=== PATIENT | female | born 1950 | race Caucasian/White ===

== ENCOUNTER 2016-10-17 06:28 | Day surgery (SDC) | payer OTHER, MEDICARE ==
--- NOTE | 2016-10-09 08:17 | HP ---
DATE OF ADMISSION: DATE OF DICTATION: 09/27/2016 DATE OF SURGERY: 10/17/2016 REASON FOR ADMISSION: Right inguinal hernia. BRIEF HISTORY: This is a 66-year-old female with a known right inguinal hernia for greater than 5 years. Patient states she does a lot of heavy lifting, gardening, and landscaping. Over the past 5 years or so, the hernia has gotten larger and now it is to a point where it is causing her discomfort. She has pain in the right groin with any type of Valsalva maneuvers or an occasional bending as well. She has had no bouts of nausea, no vomiting, no change in bowel habits. PAST MEDICAL HISTORY: No coronary disease. Patient has a history of hypertension, hypercholesterolemia, blood disorder, and kidney issues. PAST SURGICAL HISTORY: Knee replacement. ALLERGIES: None. MEDICATIONS: Lisinopril, Centrum. SOCIAL HISTORY: Patient does not smoke. She drinks socially. PHYSICAL EXAMINATION: Lungs: Clear. Heart: Regular rhythm. Abdomen: Soft, nontender, nondistended. She has a large right inguinal hernia which is reducible in the supine position. On the left there is no obvious hernia. Difficult exam due to the patient's body habitus. IMPRESSION/PLAN: Right inguinal hernia: This is a 66-year-old, very active female, who does landscaping as a part-time job. She has a right inguinal hernia that is becoming very symptomatic and she has pain in the area. Patient wished to have her acute and chronic hernia repaired due to the pain. Given the fact that she does a fair amount of physical activity, I think she should be repaired with mesh. We have discussed the open approach versus a laparoscopic approach. Patient has opted to proceed with a laparoscopic right inguinal hernia repair at this time. At the time of laparoscopy, the left side will be examined, and if an occult hernia is noted, it will be repaired. If no hernia is seen, a piece of mesh will be left in direct inguinal space for reinforcement. The indications, alternatives, and complications of the procedure discussed, questions answered. Will plan to obtain written consent the day of surgery. SAVI HEAD M.D. [id number] cc: Gigi Todd MD
[2016-10-15 17:25] VITALS: BMI 25.8
[2016-10-17] MEDS ORDERED: ceFAZolin SODIUM 1 GM VIAL ONE ×2 (06:57→07:16)
[2016-10-17] MEDS ORDERED: PHENYLEPHRINE HCL 10 MG/1 ML SINGLE DOSE VIAL ONE (07:16)
[2016-10-17] MEDS ORDERED: DEXAMETHASONE SOD PHOSPHATE 4 MG/1 ML VIAL ONE ×2 (07:16→08:32)
[2016-10-17] MEDS ORDERED: ePHEDrine SULFATE 50 MG/1 ML AMPULE ONE (07:16)
[2016-10-17] MEDS ORDERED: GLYCOPYRROLATE 0.2 MG/1 ML VIAL ONE (07:16)
[2016-10-17] MEDS ORDERED: NEOSTIGMINE METHYLSULFATE 0.5 MG/ML - 10 ML MDV ONE ×2 (07:17→08:54)
[2016-10-17] MEDS ORDERED: ROCURONIUM BROMIDE 50 MG/5 ML VIAL ONE ×2 (07:17)
[2016-10-17] MEDS ORDERED: SUCCINYLCHOLINE CHLORIDE 200 MG/10 ML VIAL ONE (07:17)
[2016-10-17] MEDS ORDERED: SODIUM CHLORIDE 0.9% P/F 10 ML VIAL IJ ONE (07:20)
[2016-10-17] MEDS ORDERED: MIDAZOLAM HCL 2 MG/2 ML SINGLE DOSE VIAL ONE (07:24)
[2016-10-17] MEDS ORDERED: LIDOCAINE HCL 2% (20ML MULTI-DOSE VIAL) NR ONE (07:26)
[2016-10-17] MEDS ORDERED: ceFAZolin SODIUM 1 GM VIAL IVPB ONE (08:20)
[2016-10-17] MEDS ORDERED: PROMETHAZINE HCL 25 MG/1 ML VIAL IVPUSH PRN (09:29)
[2016-10-17] MEDS ORDERED: ONDANSETRON 4 MG/2 ML VIAL IVPUSH PRN (09:29)
[2016-10-17] MEDS ORDERED: oxyCODONE HCL 5 MG TABLET PO PRN (09:29)
[2016-10-17] MEDS ORDERED: oxyCODONE HCL 5 MG TABLET ONE (11:01)
[2016-10-17 11:57] VITALS: BP 130/87; PULSE 62; TEMP 97.5
--- NOTE | 2016-10-17 19:02 | OP ---
DATE OF OPERATION: 10/17/2016 PREOPERATIVE DIAGNOSIS: Acute and chronic right inguinal hernia. POSTOPERATIVE DIAGNOSIS: Acute and chronic right inguinal hernia, indirect; left indirect inguinal hernia. PROCEDURE: Bilateral laparoscopic inguinal herniorrhaphy with mesh. SURGEON: Soren Crain MD VAT HOUSE SUPERVISOR: Roosevelt Samaniego MD ANESTHESIA: Mingo Whitlock MD (general). ESTIMATED BLOOD LOSS: Minimal. SPECIMEN: None. PROCEDURE: This is a 66-year-old female with a known right inguinal hernia. It has become very symptomatic for her and now she wished to have this repaired. Patient identified and appropriately positioned on operating room table. After placement of general anesthesia, the abdomen prepped and draped in the usual sterile with ChloraPrep. An infraumbilical incision was made and deepened to subcutaneous tissue. The fascia of the rectus muscle on the right identified, divided sharply, and the muscles split. Under direct vision, a dissector balloon followed by a structural balloon placed. Also under direct vision, a suprapubic 11-mm port placed. The following structures on the right side identified: Pubic tubercle, Jesse's ligament, inferior epigastric vessels, pubis, and lateral abdominal wall. During this dissection, she had no direct component. She had a large indirect inguinal hernia sac and there was a moderate cord lipoma stuck through the internal ring. The lipoma reduced, the sac reduced, the round ligament subsequently clipped and then divided. A 6 x 6 piece of Versatex mesh was placed into the preperitoneal space and then anchored laterally to anterior abdominal and lateral abdominal wall. Medially it was anchored to the anterior abdominal wall, pubic tubercle, and Jesse's ligament. Upon completion of the right side, similar structures on the left side identified. On the left side, she had an indirect inguinal hernia as well containing a fat lipoma. Both reduced back into the preperitoneal space. Again, the round ligament was subsequently isolated, clipped, and then divided. Another 6 x 6 piece of Versatex mesh was used for the operative repair. It was placed into the preperitoneal space and then anchored laterally to the anterior abdominal wall and lateral abdominal wall. Medially, mesh anchored in the midline, anchored to anterior abdominal wall, pubic tubercle, and Jesse's ligament. The preperitoneal space desufflated under direct vision, the operative field examined, noted to be hemostatic. The fascia at the superior port site and inferior port site were reapproximated with interrupted 0 Vicryl suture, all skin closed with 4-0 subcuticular Biosyn followed by Dermabond. At the conclusion of case, sponge counts were correct. ATTESTATION: Brief operative note handwritten on the preprinted form. [facility] will be queried prior to giving any narcotics. It will be done electronically as well. Anderson GILLESPIE [id number] cc: Gigi Todd MD MTDD
== END 2016-10-17 12:10 | disposition home or self-care (01) ==
LOC: JASU-SURG 06:28
PROVIDERS: ATTEND Surgery
PROC: 0YUA4JZ Supplement Bilateral Inguinal Region with Synthetic Substitute, Percutaneous Endoscopic Approach (ICD-10-PCS; principal; 2016-10-17 08:00)
DX: K40.20 Bilateral inguinal hernia, without obstruction or gangrene, not specified as recurrent (principal)
CPT/HCPCS: 94760

== ENCOUNTER 2017-04-13 20:49 | Emergency (ER) | payer OTHER, MEDICARE ==
[2017-04-13 21:05] VITALS: BP 153/101; PULSE 75; TEMP 97.7; BMI 25.4
--- NOTE | 2017-04-13 21:13 | PDOC ---
History of Present Illness - General Chief Complaint: Pain Stated Complaint: CHEST PAIN Time Seen by Provider: 04/13/17 21:05 History Source: Patient - History of Present Illness Initial Comments: 04/14/17 02:03 66-year-old female with a history of right sided substernal chest pain presents to the emergency department complaining of 6/10 intermittent right sided dull chest pain 1 hour after smoking marijuana. Patient denies headaches, dizziness , lightheadedness, nausea/vomiting, fever/chills, neck pains, jaw pains, shortness of breath, abdominal pains, flank pains, extremity numbness or tingling sensation. Patient states she has a history of similar chest pains and was seen by her PMD and technician biological health and was told it is benign. Patient had an echocardiogram and stress test approximately 8 months ago which is also benign. Presenting Symptoms: Chest Pain (right side chest) Timing/Duration: reports: intermittent Severity/Quality: reports: dull Location: reports: other (right sided) Chest Pain Radiation: reports: no radiation Activities at Onset: reports: none Past History - Past Medical History Allergies/Adverse Reactions: Allergies Allergy/AdvReac Type Severity Reaction Status Date / Time No Known Drug Allergies Allergy Verified 04/13/17 21:02 Home Medications: Ambulatory Orders Lisinopril [Zestril] 2.5 mg PO DAILY 05/14/16 Aspirin Coated [Ecotrin -] 81 mg PO DAILY 10/15/16 Mirabegron [Myrbetriq] 25 mg PO DAILY 10/15/16 Anemia: No Asthma: No Cancer: No Cardiac Disorders: No CVA: No COPD: No CHF: No Dementia: No Diabetes: No GI Disorders: No Disorders: Yes (BENIGN CYST ON KIDNEY) HTN: Yes Hypercholesterolemia: Yes Liver Disease: No Seizures: No Thyroid Disease: No - Surgical History Abdominal Surgery: No Appendectomy: No Cardiac Surgery: No Cholecystectomy: No Lung Surgery: No Neurologic Surgery: No Orthopedic Surgery: Yes (SHARLENE KNEE REPLACEMENT) - Psycho/Social/Smoking Cessation Hx Suicidal Ideation: No Smoking History: Never smoked Have you smoked in the past 12 months: No Number of Cigarettes Smoked Daily: 0 Information on smoking cessation initiated: No Hx Alcohol Use: No Drug/Substance Use Hx: No Substance Use Type: Alcohol, Marijuana Hx Substance Use Treatment: No Cardiac Specific PMH - Complaint Specific PMHX Pacemaker: No Review of Systems - Review of Systems Able to Perform ROS?: Yes Comments:: 04/14/17 01:53 CONSTITUTIONAL: Absent: fever, chills, diaphoresis, generalized weakness, malaise, loss of appetite HEENT: Absent: rhinorrhea, nasal congestion, throat pain, throat swelling, difficulty swallowing, mouth swelling, ear pain, eye pain, visual Changes CARDIOVASCULAR: +right sided CP Absent: loss of consciousness, palpitations, irregular heart rate, peripheral edema RESPIRATORY: Absent: cough, shortness of breath, dyspnea with exertion, orthopnea, wheezing, stridor, hemoptysis GASTROINTESTINAL: Absent: abdominal pain, abdominal distension, nausea, vomiting, diarrhea, constipation, melena, hematochezia GENITOURINARY: Absent: dysuria, frequency, urgency, hesitancy, hematuria, flank pain, genital pain MUSCULOSKELETAL: Absent: myalgia, arthralgia, joint swelling SKIN: Absent: rash, itching, pallor HEMATOLOGIC/IMMUNOLOGIC: Absent: easy bleeding, easy bruising, lymphadenopathy, frequent infections ENDOCRINE: Absent: unexplained weight gain, unexplained weight loss, heat intolerance, cold intolerance NEUROLOGIC: Absent: headache, focal weakness or paresthesias, dizziness, unsteady gait, seizure, mental status changes, bladder or bowel incontinence PSYCHIATRIC: Absent: anxiety, depression, suicidal or homicidal ideation, hallucinations. Is the patient limited Irish proficient: No *Physical Exam - Vital Signs Last Vital Signs Temp Pulse Resp BP Pulse Ox 97.7 F 75 18 153/101 98 04/13/17 21:02 04/13/17 21:02 04/13/17 21:02 04/13/17 21:02 04/13/17 21:02 - Physical Exam Comments: 04/14/17 01:49 GENERAL: Well developed, well nourished. Awake and alert. No acute distress. HEENT: Normocephalic, atraumatic. PERRLA, EOMI. No conjunctival pallor. Sclera are non- icteric. Moist mucous membranes. Oropharynx is clear. NECK: Supple. Full ROM. No JVD. Carotid pulses 2+ and symmetric, without bruits. No thyromegaly. No lymphadenopathy. CARDIOVASCULAR: Regular rate and rhythm. No murmurs, rubs, or gallops. Distal pulses are 2+ and symmetric. PULMONARY: No evidence of respiratory distress. Lungs clear to auscultation bilaterally. No wheezing, rales or rhonchi. ABDOMINAL: Soft. Non-tender. Non-distended. No rebound or guarding. No organomegaly. Normoactive bowel sounds. MUSCULOSKELETAL Normal range of motion at all joints. No bony deformities or tenderness. No CVA tenderness. EXTREMITIES: No cyanosis. No clubbing. No edema. No calf tenderness. SKIN: Warm and dry. Normal capillary refill. No rashes. No jaundice. NEUROLOGICAL: Alert, awake, appropriate. Cranial nerves 2-12 intact. No deficits to light touch and temperature in face, upper extremities and lower extremities. No motor deficits in the in face, upper extremities and lower extremities. Normoreflexic in the upper and lower extremities. Normal speech. Toes are down- going bilaterally. Gait is normal without ataxia. PSYCHIATRIC: Cooperative. Good eye contact. Appropriate mood and affect. ED Treatment Course - LABORATORY CBC & Chemistry Diagram: 04/13/17 21:11 04/13/17 21:11 - ADDITIONAL ORDERS Additional order review: Laboratory Results 04/14/17 04/14/17 04/13/17 02:55 01:43 21:11 Sodium 139 Potassium 4.2 Chloride 106 Carbon Dioxide 26 Anion Gap 7 L BUN 27 H D Creatinine 0.9 D Creat Clearance w eGFR > 60 Random Glucose 124 H D Calcium 9.1 Total Bilirubin 0.3 D AST 24 D ALT 29 D Alkaline Phosphatase 68 D Creatine Kinase 113 Troponin I < 0.02 < 0.02 Total Protein 7.3 Albumin 3.9 Opiates Screen Negative Methadone Screen Negative Barbiturate Screen Negative Phencyclidine Screen Negative Ur Amphetamines Screen Negative MDMA (Ecstasy) Screen Negative Benzodiazepines Screen Negative Cocaine Screen Negative U Marijuana (THC) Screen Negative 04/13/17 21:11 RBC 4.17 MCV 93.1 MCHC 32.9 RDW 13.5 MPV 7.7 D Neutrophils % 55.8 D Lymphocytes % 32.5 D Monocytes % 7.6 Eosinophils % 3.4 Basophils % 0.7 - RADIOLOGY Radiology Studies Ordered: Category Date Time Status CHEST PA & LAT [RAD] Stat Radiology 04/14/17 02:33 Taken Radiograph Interpretation: 04/14/17 03:06 CXR 2v NAD - Medications Given in the ED: ED Medications Discontinued Medications Generic Name Dose Route Start Last Admin Trade Name Freq PRN Reason Stop Dose Admin Sodium Chloride 1,000 mls @ 1,000 mls/hr 04/13/17 22:13 04/13/17 22:31 Normal Saline - IV 04/13/17 23:12 1,000 mls/hr ASDIR STA Administration *DC/Admit/Observation/Transfer Diagnosis at time of Disposition: Chest pain Qualifiers: Chest pain type: other chest pain Qualified Code(s): R07.89 - Other chest pain - Discharge Dispostion Disposition: HOME Condition at time of disposition: Stable Admit: No - Referrals Referrals: Gigi Todd MD [Primary Care Provider] - Omar Gomez MD [Staff Physician] - - Patient Instructions Printed Discharge Instructions: DI for Atypical Chest Pain Additional Instructions: Follow up with Dr. Gomze/Cardiology Return to the ER for severe/persistent/worsening symptoms You should obtain a repeat echocardiogram and excercise stress test
[2017-04-13 21:19] LABS: BASOPHIL 0.7 % (0-2.0); EOSINOPHIL 3.4 % (0-4.5); MCH 30.6 pg (25.7-33.7); MCHC 32.9 g/dl (32.0-36.0); MEAN CELL VOLUME 93.1 fl (80-96); MEAN PLT VOLUME 7.7 fl (7.5-11.1); NEUTROPHILS 55.8 % (42.8-82.8); PLATELET COUNT 294 K/MM3 (134-434); RDW 13.5 % (11.6-15.6); WHITE BLOOD COUNT 8.6 K/mm3 (4.0-10.0)
[2017-04-13 22:00] LABS: ALBUMIN 3.9 g/dl (3.4-5.0); ANION GAP 7 (8-16); BILIRUBIN,TOTAL 0.3 mg/dL (0.2-1.0); CALCIUM 9.1 mg/dL (8.5-10.1); CO2 26 mmol/L (21-32); CREATININE 0.9 mg/dL (0.55-1.02); GLUCOSE,RANDOM 124 mg/dL (74-106); SGOT/AST 24 U/L (15-37); SGPT/ALT 29 U/L (12-78); TOT PROT 7.3 g/dl (6.4-8.2)
[2017-04-13 22:03] LABS: ALK PHOS 68 U/L (45-117); CPK 113 IU/L (26-192); TROPONIN I < 0.02 ng/ml (0.00-0.05)
[2017-04-13] MEDS ORDERED: SODIUM CHLORIDE 1,000 ML IV STA (22:13)
[2017-04-14 03:35] LABS: URINE MARIJUANA THC NEGATIVE ng/ml (CUTOFF=50)
--- NOTE | 2017-04-14 13:26 | EKG ---
Test Reason : Blood Pressure : / mmHG Vent. Rate : 078 BPM Atrial Rate : 078 BPM P-R Int : 144 ms QRS Dur : 082 ms QT Int : 410 ms P-R-T Axes : 044 002 034 degrees QTc Int : 467 ms NORMAL SINUS RHYTHM NONSPECIFIC ST AND T WAVE ABNORMALITY ABNORMAL ECG NO PREVIOUS ECGS AVAILABLE BASELINE ARTIFACT Confirmed by GAUTAM RAO, JOHN ([id number]) on 04/14/2017 1:26:02 PM Referred By: Confirmed By:JOHN FLOREZ MD
== END 2017-04-14 05:08 | disposition home or self-care (01) ==
LOC: JER 20:49
PROC: 3E0337Z Introduction of Electrolytic and Water Balance Substance into Peripheral Vein, Percutaneous Approach (ICD-10-PCS; principal; 2017-04-13)
DX: R07.89 Other chest pain (principal); I10 Essential (primary) hypertension; E78.00 Pure hypercholesterolemia, unspecified; Z96.653 Presence of artificial knee joint, bilateral
CPT/HCPCS: 36415; 71020-TC; 80053; 80307; 84484; 85025; 93005; 93010; 99283-25

== ENCOUNTER 2017-08-05 15:05 | Inpatient (IN) | payer OTHER, MEDICARE ==
[2017-08-05] MEDS ORDERED: ONDANSETRON *ODT* 4 MG TABLET SL ONE (15:21)
--- NOTE | 2017-08-05 15:22 | PDOC ---
Rapid Medical Evaluation Time Seen by Provider: 08/05/17 15:16 Medical Evaluation: Allergies Allergy/AdvReac Type Severity Reaction Status Date / Time No Known Drug Allergies Allergy Verified 04/13/17 21:02 08/05/17 15:16 I have performed a brief in person evaluation of this patient. The patient presents with chief complaint of : stomach ache and vomiting bile for day sent by Dr.Maritn Todd, severe cramping comes and goes. no abd surgery , history of constipation Pertinent PE findings: abd pain , cramping I have ordered the following: labs, The patient will proceed to the ER for further evaluation.
[2017-08-05 15:39] LABS: BASOPHIL 0.5 % (0-2.0); EOSINOPHIL 0.2 % (0-4.5); MCH 30.9 pg (25.7-33.7); MCHC 33.4 g/dl (32.0-36.0); MEAN CELL VOLUME 92.5 fl (80-96); MEAN PLT VOLUME 7.6 fl (7.5-11.1); NEUTROPHILS 80.7 % (42.8-82.8); PLATELET COUNT 310 K/MM3 (134-434); RDW 13.2 % (11.6-15.6); WHITE BLOOD COUNT 11.9 K/mm3 (4.0-10.0)
[2017-08-05 16:05] LABS: ALBUMIN 4.3 g/dl (3.4-5.0); AMYLASE 45 U/L (25-115); ANION GAP 9 (8-16); CALCIUM 9.4 mg/dL (8.5-10.1); CO2 27 mmol/L (21-32); CREATININE 0.8 mg/dL (0.55-1.02); GLUCOSE,RANDOM 127 mg/dL (74-106); SGOT/AST 20 U/L (15-37); SGPT/ALT 30 U/L (12-78)
[2017-08-05 16:07] LABS: ALK PHOS 72 U/L (45-117); BILIRUBIN,TOTAL 0.7 mg/dL (0.2-1.0); TOT PROT 7.8 g/dl (6.4-8.2)
[2017-08-05] MEDS ORDERED: SODIUM CHLORIDE 1,000 ML IV STA (17:25)
--- NOTE | 2017-08-05 17:25 | PDOC ---
History of Present Illness <Rolanda Michel - Last Filed: 08/05/17 21:20> - General History Source: Patient Exam Limitations: No Limitations - History of Present Illness Initial Comments: 08/05/17 21:38 The patient is a 66 year old female, with a significant past medical history of HTN, HLD, Diverticulosis who presents to the emergency department with nausea, vomiting and abdominal pain today. Patient reports severe mid abdominal pain, cramping, 7/10 in severity with associated vomiting. Patient was seen by her PCP and was sent to the ED for further evaluation. Patient denies chest pain, headache or dizziness. Patient denies fever, chills, diarrhea or constipation. Patient denies dysuria, frequency, urgency or hematuria. Patient denies sick contacts or recent travel. <Mary Carmen Bello - Last Filed: 08/06/17 01:17> - General Chief Complaint: Pain, Acute Stated Complaint: ABD PAIN (PCP SENT) Time Seen by Provider: 08/05/17 15:16 Past History - Past Medical History Anemia: No Asthma: No Cancer: No Cardiac Disorders: No CVA: No COPD: No CHF: No Dementia: No Diabetes: No GI Disorders: No Disorders: Yes (BENIGN CYST ON KIDNEY) HTN: Yes Hypercholesterolemia: Yes Liver Disease: No Seizures: No Thyroid Disease: No - Surgical History Abdominal Surgery: No Appendectomy: No Cardiac Surgery: No Cholecystectomy: No Lung Surgery: No Neurologic Surgery: No Orthopedic Surgery: Yes (SHARLENE KNEE REPLACEMENT) - Immunization History Immunization Up to Date: No - Suicide/Smoking/Psychosocial Hx Smoking History: Never smoked Have you smoked in the past 12 months: No Number of Cigarettes Smoked Daily: 0 Hx Alcohol Use: No Drug/Substance Use Hx: No Substance Use Type: Alcohol, Marijuana Hx Substance Use Treatment: No <Rolanda Michel - Last Filed: 08/05/17 21:20> <Mary Carmen Bello - Last Filed: 08/06/17 01:17> - Past Medical History Allergies/Adverse Reactions: Allergies Allergy/AdvReac Type Severity Reaction Status Date / Time No Known Drug Allergies Allergy Verified 08/05/17 15:16 Home Medications: Ambulatory Orders Aspirin [ASA -] 81 mg PO DAILY 08/05/17 Lisinopril [Zestril] 2.5 mg PO DAILY 12/04/17 Omeprazole 230 mg PO DAILY 08/05/17 Oxybutynin Chloride [Ditropan Xl] 10 mg PO DAILY 08/05/17 Review of Systems - Review of Systems Able to Perform ROS?: Yes Comments:: 08/05/17 21:38 CONSTITUTIONAL: Absent: fever, chills, diaphoresis, generalized weakness, malaise, loss of appetite HEENT: Absent: rhinorrhea, nasal congestion, throat pain, throat swelling, difficulty swallowing, mouth swelling, ear pain, eye pain, visual Changes CARDIOVASCULAR: Absent: chest pain, syncope, palpitations, irregular heart rate, lightheadedness , peripheral edema RESPIRATORY: Absent: cough, shortness of breath, dyspnea with exertion, orthopnea, wheezing, stridor, hemoptysis GASTROINTESTINAL: +abdominal pain,, nausea, vomiting. Absent: abdominal distension, diarrhea, constipation, melena, hematochezia GENITOURINARY: Absent: dysuria, frequency, urgency, hesitancy, hematuria, flank pain, genital pain MUSCULOSKELETAL: Absent: myalgia, arthralgia, joint swelling SKIN: Absent: rash, itching, pallor HEMATOLOGIC/IMMUNOLOGIC: Absent: easy bleeding, easy bruising, lymphadenopathy, frequent infections ENDOCRINE: Absent: unexplained weight gain, unexplained weight loss, heat intolerance, cold intolerance NEUROLOGIC: Absent: headache, focal weakness or paresthesias, dizziness, unsteady gait, seizure, mental status changes, bladder or bowel incontinence PSYCHIATRIC: Absent: anxiety, depression, suicidal or homicidal ideation, hallucinations. <Mary Carmen Bello - Last Filed: 08/06/17 01:17> *Physical Exam - Vital Signs Last Vital Signs Temp Pulse Resp BP Pulse Ox 97.3 F L 76 19 146/75 100 08/05/17 15:16 08/05/17 15:16 08/05/17 15:16 08/05/17 15:16 08/05/17 15:16 <Rolanda Michel - Last Filed: 08/05/17 21:20> - Vital Signs Last Vital Signs Temp Pulse Resp BP Pulse Ox 97.3 F L 76 19 146/75 100 08/05/17 15:16 08/05/17 15:16 08/05/17 15:16 08/05/17 15:16 08/05/17 15:16 - Physical Exam Comments: 08/05/17 21:38 GENERAL: Well developed, well nourished. Awake and alert. No acute distress. HEENT: Normocephalic, atraumatic. PERRLA, EOMI. No conjunctival pallor. Sclera are non- icteric. Moist mucous membranes. Oropharynx is clear. NECK: Supple. Full ROM. No JVD. Carotid pulses 2+ and symmetric, without bruits. No thyromegaly. No lymphadenopathy. CARDIOVASCULAR: Regular rate and rhythm. No murmurs, rubs, or gallops. Distal pulses are 2+ and symmetric. PULMONARY: No evidence of respiratory distress. Lungs clear to auscultation bilaterally. No wheezing, rales or rhonchi. ABDOMINAL: +Band like abdominal tenderness. Soft. Non-tender. Non-distended. No rebound or guarding. No organomegaly. Normoactive bowel sounds. MUSCULOSKELETAL Normal range of motion at all joints. No bony deformities or tenderness. No CVA tenderness. EXTREMITIES: No cyanosis. No clubbing. No edema. No calf tenderness. SKIN: Warm and dry. Normal capillary refill. No rashes. No jaundice. NEUROLOGICAL: Alert, awake, appropriate. Cranial nerves 2-12 intact. No deficits to light touch and temperature in face, upper extremities and lower extremities. No motor deficits in the in face, upper extremities and lower extremities. Normoreflexic in the upper and lower extremities. Normal speech. Toes are down-going bilaterally. Gait is normal without ataxia. PSYCHIATRIC: Cooperative. Good eye contact. Appropriate mood and affect. <Mary Carmen Bello - Last Filed: 08/06/17 01:17> ED Treatment Course - LABORATORY CBC & Chemistry Diagram: 08/05/17 15:30 08/05/17 15:30 - ADDITIONAL ORDERS Additional order review: Laboratory Results 08/05/17 15:30 Sodium 140 Potassium 3.9 Chloride 104 Carbon Dioxide 27 Anion Gap 9 BUN 16 D Creatinine 0.8 Creat Clearance w eGFR > 60 Random Glucose 127 H Calcium 9.4 Total Bilirubin 0.7 D AST 20 ALT 30 Alkaline Phosphatase 72 Total Protein 7.8 Albumin 4.3 Total Amylase 45 Lipase 117 08/05/17 15:30 RBC 4.46 MCV 92.5 MCHC 33.4 RDW 13.2 MPV 7.6 Neutrophils % 80.7 D Lymphocytes % 13.2 D Monocytes % 5.4 Eosinophils % 0.2 D Basophils % 0.5 <Rolanda Michel - Last Filed: 08/05/17 21:20> - LABORATORY CBC & Chemistry Diagram: 08/05/17 15:30 08/05/17 15:30 - ADDITIONAL ORDERS Additional order review: Laboratory Results 08/05/17 15:30 Sodium 140 Potassium 3.9 Chloride 104 Carbon Dioxide 27 Anion Gap 9 BUN 16 D Creatinine 0.8 Creat Clearance w eGFR > 60 Random Glucose 127 H Calcium 9.4 Total Bilirubin 0.7 D AST 20 ALT 30 Alkaline Phosphatase 72 Total Protein 7.8 Albumin 4.3 Total Amylase 45 Lipase 117 08/05/17 15:30 RBC 4.46 MCV 92.5 MCHC 33.4 RDW 13.2 MPV 7.6 Neutrophils % 80.7 D Lymphocytes % 13.2 D Monocytes % 5.4 Eosinophils % 0.2 D Basophils % 0.5 - Medications Given in the ED: ED Medications Discontinued Medications Generic Name Dose Route Start Last Admin Trade Name Freq PRN Reason Stop Dose Admin Sodium Chloride 1,000 mls @ 1,000 mls/hr 08/05/17 17:25 08/05/17 18:13 Normal Saline - IV 08/05/17 18:24 1,000 mls/hr ASDIR STA Administration Ondansetron HCl 4 mg 08/05/17 15:21 08/05/17 18:13 Zofran Odt - SL 08/05/17 15:22 4 mg ONCE ONE Administration <Mary Carmen Bello - Last Filed: 08/06/17 01:17> Medical Decision Making - Medical Decision Making 08/05/17 21:15 Dr. Peyton butler. Call returned and the patients case was discussed. 08/06/17 01:16 CTAP Impression: There is interval significant mesenteric edema/stranding in left side of the abdomen, rule out inflammatory versus infectious process. The adjacent small bowel loops are nondilated without gross wall thickening. There is thickening of the terminal ileum wall with dilatation of the distal small bowel loops that may be on the basis of partial obstruction versus ileus. Further evaluation and close follow-up is recommended Nondistention of the splenic flexure, cannot rule out wall thickening/colitis. Diverticulosis coli without evidence of acute diverticulitis. Bulbous uterine fundus on the axial images, cannot rule out a fibroid uterus. Reported By: Lien Villegas MD 08/05/172045 <Mary Carmen Bello - Last Filed: 08/06/17 01:17> *DC/Admit/Observation/Transfer - Discharge Dispostion Admit: Yes <Rolanda Michel - Last Filed: 08/05/17 21:20> - Attestations Scribe Attestion: 08/05/17 21:39 Documentation prepared by Mary Carmen Bello, acting as medical customer service representative for Rolanda Michel MD <Mary Carmen Bello - Last Filed: 08/06/17 01:17> Diagnosis at time of Disposition: SBO (small bowel obstruction)
[2017-08-05] MEDS ORDERED: ONDANSETRON *ODT* 4 MG TABLET ONE (18:05)
[2017-08-05] MEDS ORDERED: HYDROmorphone HCL CARPU-JECT 1 MG/1 ML DISP.SYRIN IVPUSH ONE (21:08)
[2017-08-05] MEDS ORDERED: ONDANSETRON 4 MG/2 ML VIAL IVPUSH ONE (21:09)
[2017-08-05] MEDS ORDERED: ONDANSETRON 4 MG/2 ML VIAL ONE (21:41)
[2017-08-05] MEDS ORDERED: HYDROmorphone HCL CARPU-JECT 1 MG/1 ML DISP.SYRIN ONE (21:41)
[2017-08-05] MEDS ORDERED: LISINOPRIL 5 MG TABLET (FP) PO ONE (22:32)
[2017-08-05] MEDS ORDERED: HYDROmorphone HCL CARPU-JECT 1 MG/1 ML DISP.SYRIN IVPB PRN (22:32)
--- NOTE | 2017-08-05 22:41 | HP ---
Admitting History and Physical - Admission Chief Complaint: n/v abd pain x2days History Source: Patient Limitations to Obtaining History: No Limitations - Past Medical History Gastrointestinal: Yes: Diverticulosis - Past Surgical History Past Surgical History: Yes: Hernia Repair (pamela tkr) - Smoking History Smoking history: Never smoked Have you smoked in the past 12 months: No Aproximately how many cigarettes per day: 0 - Alcohol/Substance Use Hx Alcohol Use: No History of Substance Use: reports: None Home Medications - Allergies Allergies/Adverse Reactions: Allergies Allergy/AdvReac Type Severity Reaction Status Date / Time No Known Drug Allergies Allergy Verified 08/05/17 15:16 - Home Medications Home Medications: Ambulatory Orders Aspirin [ASA -] 81 mg PO DAILY 08/05/17 Lisinopril [Zestril] 2.5 mg PO DAILY 08/05/17 Omeprazole 230 mg PO DAILY 08/05/17 Oxybutynin Chloride [Ditropan Xl] 10 mg PO DAILY 08/05/17 Family Disease History - Family Disease History Family History: Unremarkable Review of Systems - Review of Systems Constitutional: reports: Other (abd pain n/v) HENT: reports: No Symptoms Neck: reports: No Symptoms Cardiovascular: reports: No Symptoms Respiratory: reports: No Symptoms Gastrointestinal: reports: Vomiting Genitourinary: reports: No Symptoms Breasts: reports: No Symptoms Reported Musculoskeletal: reports: No Symptoms Integumentary: reports: No Symptoms Neurological: reports: No Symptoms Endocrine: reports: No Symptoms Hematology/Lymphatic: reports: No Symptoms Psychiatric: reports: No Symptoms Physical Examination Vital Signs: Vital Signs Temperature 97.3 F L 08/05/17 15:16 Pulse Rate 76 08/05/17 15:16 Respiratory Rate 19 08/05/17 15:16 Blood Pressure 146/75 08/05/17 15:16 O2 Sat by Pulse Oximetry (%) 100 08/05/17 15:16 Constitutional: Yes: Well Nourished Eyes: Yes: WNL HENT: Yes: WNL Neck: Yes: WNL Cardiovascular: Yes: WNL Respiratory: Yes: WNL Gastrointestinal: Yes: Tenderness, Vomiting ...Rectal Exam: Yes: Deferred Renal/: Yes: WNL Breast(s): Yes: WNL Musculoskeletal: Yes: WNL Extremities: Yes: WNL Edema: No Peripheral Pulses WNL: Yes Integumentary: Yes: WNL Neurological: Yes: WNL ...Motor Strength: WNL Psychiatric: Yes: WNL Labs: CBC, BMP 08/05/17 15:30 08/05/17 15:30 Assessment/Plan sx eval gi eval npo iv ivatbx chk labs in am
[2017-08-05] MEDS ORDERED: ONDANSETRON 4 MG TABLET PO ONE (23:00)
[2017-08-06] MEDS: SODIUM CHLORIDE 1,000 ML IV SCH (01:39)
[2017-08-06] MEDS: ASPIRIN COATED 81 MG TABLET.EC PO SCH ×2 (03:18→09:40)
[2017-08-06] MEDS: LISINOPRIL 5 MG TABLET (FP) PO SCH ×2 (03:21→09:40)
[2017-08-06 05:13] VITALS: BMI 25.1
[2017-08-06 09:29] LABS: BASOPHIL 0.4 % (0-2.0); EOSINOPHIL 2.1 % (0-4.5); MCH 30.3 pg (25.7-33.7); MCHC 32.4 g/dl (32.0-36.0); MEAN CELL VOLUME 93.4 fl (80-96); MEAN PLT VOLUME 7.7 fl (7.5-11.1); NEUTROPHILS 61.4 % (42.8-82.8); PLATELET COUNT 283 K/MM3 (134-434); RDW 13.6 % (11.6-15.6); WHITE BLOOD COUNT 8.8 K/mm3 (4.0-10.0)
[2017-08-06 09:54] LABS: ALBUMIN 3.2 g/dl (3.4-5.0); ANION GAP 6 (8-16); CALCIUM 8.1 mg/dL (8.5-10.1); CO2 27 mmol/L (21-32); CREATININE 0.7 mg/dL (0.55-1.02); GLUCOSE,RANDOM 89 mg/dL (74-106); SGOT/AST 16 U/L (15-37); SGPT/ALT 22 U/L (12-78)
[2017-08-06 09:56] LABS: ALK PHOS 62 U/L (45-117); BILIRUBIN,TOTAL 0.9 mg/dL (0.2-1.0); TOT PROT 6.3 g/dl (6.4-8.2)
--- NOTE | 2017-08-06 10:57 | PN ---
Progress Note, Physician History of Present Illness: pt feels better asking water abd less tender oob no bm yet but soft abd ileus? improving chk labs in am f/u w sx gi sips of water ok - Current Medication List Current Medications: Active Medications Aspirin (Ecotrin -) 81 mg PO DAILY [facility] Last Admin: 08/06/17 09:40 Dose: 81 mg Hydromorphone HCl (Dilaudid Injection -) 1 mg IVPB Q4H PRN PRN Reason: PAIN Last Admin: 08/06/17 05:14 Dose: 1 mg Sodium Chloride (Normal Saline -) 1,000 mls @ 100 mls/hr IV ASDIR [facility] Last Admin: 08/06/17 01:39 Dose: 100 mls/hr Piperacillin Sod/Tazobactam (Sod 3.375 gm/ Dextrose) 50 mls @ 100 mls/hr IVPB Q8H-IV ADAM PRN Reason: Protocol Stop: 08/10/17 18:29 Lisinopril (Prinivil) 2.5 mg PO DAILY [facility] Last Admin: 08/06/17 09:40 Dose: 2.5 mg - Objective Vital Signs: Vital Signs Temperature 98.7 F 08/06/17 06:02 Pulse Rate 86 08/06/17 06:02 Respiratory Rate 20 08/06/17 06:02 Blood Pressure 159/82 08/06/17 06:02 O2 Sat by Pulse Oximetry (%) 100 08/05/17 15:16 Labs: CBC, BMP 08/06/17 09:10 08/06/17 09:10
--- NOTE | 2017-08-06 12:33 | PN ---
Progress Note (short form) - Note Progress Note: ID consult dictated imp/reccd 66 year old female developed mid pigastric bandlike pain on Saturday accompanied by vomiting (bilious), sent to ED yesterday no fevers, constipation, last BM on Saturday, no travel, no sick contacts asked to see for leukocytosis she is feeling much better vomiting has stopped minimal abdominal discomfort on exam she is hungry and wants to eat leukocytosis has resolved suspect self limiting gastroenteritis f/u with PMD and GI-f/u ct scan advance diet as tolerated no need for antibiotics d/w PMD Dr Todd please call back if needed Problem List - Problems (1) Gastroenteritis Code(s): K52.9 - NONINFECTIVE GASTROENTERITIS AND COLITIS, UNSPECIFIED (2) Leukocytosis Code(s): D72.829 - ELEVATED WHITE BLOOD CELL COUNT, UNSPECIFIED
[2017-08-06] MEDS: PIPERACILLIN/TAZOB 3.375 GM 3.375 GM in DEXTROSE 5%-WATER - 50 ML IVPB SCH (12:40)
--- NOTE | 2017-08-06 15:25 | PN ---
Progress Note (short form) - Note Progress Note: surgery pt seen and examined. full consult dictated. 66f with previous extra- abdominal b/l inguinal hernia, history of constipation, was around a sick child and then ate turkey soup with popcorn and clementines... Pt developed abd pain with nausea and vomiting, now resolved. Ct showed psbo vs ileus, vs colitis. Pt admits to flatus and currently feels well. On exam abd is soft, nt, nd. Plan- either resolving psbo vs enteritis. will get kub to follow migration of contrast. can likely start liquids tomorrow if kub ok. It would be unusual to have a mechanical sbo without intr-abdominal surgery.
--- NOTE | 2017-08-06 15:44 | CON.GI ---
Consult Consult Specialty:: gastoenterology Referred by:: Dr Gigi Todd Reason for Consultation:: SBO - History of Present Illness History of Present Illness: 66 y/o fmeal with PMH of HTN, no previous abdominal surgery was doing weel until yesterday when she developed 10/10 suprapubic pain, nausea,vomiting, WBC 11,000. Ct was done which revealed mesenteric edema and dilated small bowel. She also had highly colored urine. Today she feel better. She has hisotyr of top normal platelets - Past Medical History Gastrointestinal: Yes: Diverticulosis - Past Surgical History Past Surgical History: Yes: Hernia Repair (pamela tkr) - Alcohol/Substance Use Hx Alcohol Use: Yes (occassional) History of Substance Use: reports: None - Smoking History Smoking history: Never smoked Have you smoked in the past 12 months: No Aproximately how many cigarettes per day: 0 Home Medications - Allergies Allergies/Adverse Reactions: Allergies Allergy/AdvReac Type Severity Reaction Status Date / Time No Known Drug Allergies Allergy Verified 08/05/17 15:16 - Home Medications Home Medications: Ambulatory Orders Aspirin [ASA -] 81 mg PO DAILY 08/05/17 Lisinopril [Zestril] 2.5 mg PO DAILY 08/05/17 Omeprazole 230 mg PO DAILY 08/05/17 Oxybutynin Chloride [Ditropan Xl] 10 mg PO DAILY 08/05/17 Physical Exam-GI Vital Signs: Vital Signs Temperature 98.2 F 08/06/17 14:30 Pulse Rate 71 08/06/17 14:30 Respiratory Rate 16 08/06/17 14:30 Blood Pressure 127/80 08/06/17 14:30 O2 Sat by Pulse Oximetry (%) 97 08/06/17 09:00 Constitutional: Yes: Well Nourished Eyes: Yes: Conjunctiva Clear HENT: Yes: Atraumatic Neck: Yes: Trachea Midline Cardiovascular: Yes: Regular Rate and Rhythm Respiratory: Yes: CTA Bilaterally ...Palpate: Yes: Soft. No: Firm/Rigid, Guarding, Hepatomegaly, Mass, Pulsatile Mass, Splenomegaly, Tenderness Labs: CBC, BMP 08/06/17 09:10 08/06/17 09:10 Imaging - Results Cat Scan: Report Reviewed, Image Reviewed Problem List - Problems (1) SBO (small bowel obstruction) Assessment/Plan: r/o mesenteric ischemia, r/o hypercoaguable state R> if pain recurrs will need CT/MRI angio hypercoaguable state w/u as an outpatient advance diet as tolerated made aware to follow-up last colonoscopy with Dr Chaparro 4 years ago Code(s): K56.609 - UNSP INTESTNL OBST, UNSP TO PARTIAL VERSUS COMPLETE OBST
--- NOTE | 2017-08-06 16:45 | PN ---
Progress Note, Physician - Current Medication List Current Medications: Active Medications Aspirin (Ecotrin -) 81 mg PO DAILY [facility] Last Admin: 08/06/17 09:40 Dose: 81 mg Hydromorphone HCl (Dilaudid Injection -) 1 mg IVPB Q4H PRN PRN Reason: PAIN Last Admin: 08/06/17 05:14 Dose: 1 mg Sodium Chloride (Normal Saline -) 1,000 mls @ 100 mls/hr IV ASDIR [facility] Last Admin: 08/06/17 01:39 Dose: 100 mls/hr Lisinopril (Prinivil) 2.5 mg PO DAILY [facility] Last Admin: 08/06/17 09:40 Dose: 2.5 mg Pantoprazole Sodium (Protonix -) 40 mg PO DAILY [facility] - Objective Vital Signs: Vital Signs Temperature 98.2 F 08/06/17 14:30 Pulse Rate 71 08/06/17 14:30 Respiratory Rate 16 08/06/17 14:30 Blood Pressure 127/80 08/06/17 14:30 O2 Sat by Pulse Oximetry (%) 97 08/06/17 09:00 Constitutional: Yes: Well Nourished Eyes: Yes: WNL HENT: Yes: WNL Neck: Yes: WNL Cardiovascular: Yes: WNL Respiratory: Yes: WNL Gastrointestinal: Yes: Other (less abd pain) ...Rectal Exam: Yes: Deferred Genitourinary: Yes: WNL Breast(s): Yes: WNL Musculoskeletal: Yes: WNL Extremities: Yes: WNL Edema: No Peripheral Pulses WNL: Yes Integumentary: Yes: WNL Neurological: Yes: WNL Labs: CBC, BMP 08/06/17 09:10 08/06/17 09:10 Assessment/Plan sips water ok vss oob gi sx f/u
--- NOTE | 2017-08-06 17:32 | CONS ---
INFECTIOUS DISEASE CONSULTATION DATE OF CONSULTATION: DATE OF DICTATION: 08/06/2017 REQUESTING PHYSICIAN: Gigi Todd MD HISTORY OF PRESENT ILLNESS: This is a 66-year-old woman who lives here in the community. She presented with acute onset yesterday of mid-epigastric pain, band-like, radiating across her entire upper abdomen, accompanied by bilious vomiting. She was evaluated in the emergency room and admitted. There was no fever or chills. There was no diarrhea. Her last bowel movement was on Saturday. She has no dysuria. There is no history of any sick contacts. She has not traveled recently. We are asked to see her for an elevated white count of 11.9. Patient overnight has improved. She reports her abdominal pain has resolved. She has had no further vomiting. In fact, she is hungry. She was just started on sips of water which she is tolerating. She reports these symptoms all started on Saturday morning when she tried to take some Dulcolax for constipation as she had not had a bowel movement since Saturday. PAST MEDICAL HISTORY: Notable for benign cyst on her kidney and hypertension, hypercholesterolemia. She has had bilateral knee replacements. ALLERGIES: She has no known drug allergies. MEDICATIONS: She takes aspirin, Zestril, omeprazole, and Ditropan XL. SOCIAL HISTORY: She lives at home. She is employed. She does not smoke cigarettes, occasionally uses alcohol and marijuana. REVIEW OF SYSTEMS: She has had a colonoscopy in the past, one or two, most recently 2 years ago. She has had a maybe 1 or 2 pound weight loss. She has had no constitutional symptoms. PHYSICAL EXAMINATION: Vital Signs: She is afebrile; temperature is 98.7. Pulse of 86, blood pressure 159/82, respiratory rate is 20. She is saturating 97% on room air. General: She is well appearing. HEENT: She is normocephalic. Her eyes are anicteric. Neck: Supple. Lungs: Clear to auscultation. Heart: Regular rate and rhythm. Abdomen: Soft. She has mild mid-epigastric discomfort on deep palpation. She has good bowel sounds. There is no abdominal distention. Extremities: Without edema. Skin: She has no rash. DIAGNOSTIC DATA: White count yesterday was 11.9; this morning is 8.8. Hemoglobin 12.3, platelets are 283. Chemistries are within normal limits. Liver function tests are normal. She had a CAT scan done in the emergency room with many nonspecific findings including mesenteric edema in the left side of the abdomen. She had some thickening of the terminal ileum with some small-bowel dilatation. She had diverticulosis without diverticulitis. Her chest x-ray showed no active disease. In summary, this is an otherwise-healthy, 66-year-old woman with a suspected self-limiting gastroenteritis. Leukocytosis has resolved, and her gastrointestinal symptoms are all improved. Recommend followup with her primary and with GI regarding the CAT scan. Would advance her diet as tolerated. No need for antibiotics at this time. This was all discussed with Dr. Todd. Please call back if needed. NINFA DIAZ M.D. [id number]
--- NOTE | 2017-08-06 19:35 | CONS ---
DATE OF CONSULTATION: 08/06/2017 REASON FOR CONSULTATION: Small-bowel obstruction. REQUESTING PHYSICIAN: Gigi Todd MD This is an inpatient consultation. BRIEF HISTORY: This is a 66-year-old female with no previous intraabdominal surgery, only with history of an extra-abdominal bilateral inguinal hernia repair. She was around a sick child and then ate turkey soup, followed by popcorn and lay oranges. She developed abdominal pain with nausea and vomiting. Because of this, she came in to [facility] Emergency Room where she had a CAT scan of her abdomen and pelvis which had multiple possible findings. One of which was a partial small-bowel obstruction. Another possible finding was colitis, and another possible finding was ileus. She was admitted to the hospital without nasogastric tube decompression and currently feels well. She is passing gas and has no abdominal pain. She has not had any further episodes of vomiting since drinking contrast for her CAT scan. PAST MEDICAL HISTORY: Significant for hypertension, hyperlipidemia, and diverticulosis. PAST SURGICAL HISTORY: Includes the hernia repair as stated, as well as bilateral total knee replacement. SOCIAL HISTORY: Negative for alcohol. Negative for tobacco. ALLERGIES: She has no known drug allergies. FAMILY HISTORY: Noncontributory. HOME MEDICATIONS: Have been reviewed. They include aspirin, lisinopril, and Ditropan. REVIEW OF SYSTEMS: General: Denies fatigue or malaise. Cardiac: Denies chest pain or palpitations. Respiratory: Denies shortness of breath or wheeze. Gastrointestinal: As in HPI. Denies diarrhea. Denies blood in her stool. Denies recent weight loss. Her last colonoscopy was approximately 1 year ago and was unremarkable per the patient. Genitourinary: Denies dysuria. Musculoskeletal: Denies joint pain and joint swelling. Psychiatric: Denies anxiety, depression, or hearing voices. PHYSICAL EXAMINATION: General: This is a well-developed, well-nourished, 66-year-old female in no distress. Vital Signs: She is afebrile. HEENT: Her head is normocephalic. Her sclerae are anicteric. Neck: Supple. Chest: Clear. Abdomen: Soft. It is nontender, nondistended, without obvious hernias. Extremities: No edema. LABORATORY DATA: White blood cell count is normal at 8.8, which is down from 11.9. Her chemistries are unremarkable. IMAGING: As in HPI. ASSESSMENT: This is a 66-year-old female who presented with abdominal pain, nausea, and vomiting after being exposed to a sick child and eating oranges, popcorn, and turkey soup. She currently feels well and is passing gas. Her CAT scan was significant for the possibility of a partial small-bowel obstruction yet she has had no intraabdominal surgery to cause the necessary adhesions. At this point, I suspect that she has enteritis with less likely resolving partial mechanical bowel obstruction. She is currently nontoxic and appears well. We will get an abdominal x-ray to follow the migration of the contrast. If the contrast is seen in the colon, can likely start liquid diet tomorrow with plans for discharge. DO JUAN FRANCISCO HESS/[id number]
[2017-08-07] MEDS: SODIUM CHLORIDE 1,000 ML IV SCH ×3 (04:14→22:00)
--- NOTE | 2017-08-07 07:50 | EKG ---
Test Reason : Blood Pressure : / mmHG Vent. Rate : 061 BPM Atrial Rate : 061 BPM P-R Int : 128 ms QRS Dur : 082 ms QT Int : 438 ms P-R-T Axes : 027 000 009 degrees QTc Int : 440 ms NORMAL SINUS RHYTHM POSSIBLE ANTERIOR INFARCT , AGE UNDETERMINED ABNORMAL ECG WHEN COMPARED WITH ECG OF 13-APR-2017 21:01, NO SIGNIFICANT CHANGE WAS FOUND Confirmed by Danette Rosen ([id number]) on 08/06/2017 2:47:10 PM Also confirmed by MD Rosen Daniel ([id number]), slot editor DANETTE GOVEA ([id number]) on 08/07/2017 7:50:30 AM Referred By: Confirmed By:Danette Rosen MD
[2017-08-07] MEDS: LISINOPRIL 5 MG TABLET (FP) PO SCH (09:36)
[2017-08-07] MEDS: PANTOPRAZOLE 40 MG TABLET (FP) PO SCH (09:36)
[2017-08-07] MEDS: ASPIRIN COATED 81 MG TABLET.EC PO SCH (09:36)
--- NOTE | 2017-08-07 10:15 | PN ---
Progress Note, Physician Chief Complaint: feels better tolerating diet - Current Medication List Current Medications: Active Medications Aspirin (Ecotrin -) 81 mg PO DAILY [facility] Last Admin: 08/07/17 09:36 Dose: 81 mg Sodium Chloride (Normal Saline -) 1,000 mls @ 100 mls/hr IV ASDIR [facility] Last Admin: 08/07/17 04:14 Dose: 100 mls/hr Lisinopril (Prinivil) 2.5 mg PO DAILY [facility] Last Admin: 08/07/17 09:36 Dose: 2.5 mg Pantoprazole Sodium (Protonix -) 40 mg PO DAILY [facility] Last Admin: 08/07/17 09:36 Dose: 40 mg - Objective Vital Signs: Vital Signs Temperature 97.8 F 08/07/17 06:28 Pulse Rate 64 08/07/17 06:28 Respiratory Rate 20 08/07/17 06:28 Blood Pressure 136/86 08/07/17 06:28 O2 Sat by Pulse Oximetry (%) 95 08/06/17 21:00 Constitutional: Yes: Well Nourished Eyes: Yes: WNL HENT: Yes: WNL Neck: Yes: WNL Cardiovascular: Yes: WNL Respiratory: Yes: WNL Gastrointestinal: Yes: Soft ...Rectal Exam: Yes: Deferred Genitourinary: Yes: WNL Breast(s): Yes: WNL Musculoskeletal: Yes: WNL Extremities: Yes: WNL Edema: No Peripheral Pulses WNL: Yes Integumentary: Yes: WNL Neurological: Yes: WNL ...Motor Strength: WNL Psychiatric: Yes: WNL Labs: CBC, BMP 08/06/17 09:10 08/06/17 09:10 Assessment/Plan if tolerating diet? d/c in am chk labs in am fua done no obst
[2017-08-08] MEDS: SODIUM CHLORIDE 1,000 ML IV SCH (06:01)
[2017-08-08 07:59] LABS: BASOPHIL 0.8 % (0-2.0); EOSINOPHIL 3.7 % (0-4.5); MCH 30.3 pg (25.7-33.7); MCHC 32.5 g/dl (32.0-36.0); MEAN CELL VOLUME 93.1 fl (80-96); MEAN PLT VOLUME 7.6 fl (7.5-11.1); NEUTROPHILS 51.6 % (42.8-82.8); PLATELET COUNT 322 K/MM3 (134-434); RDW 13.4 % (11.6-15.6); WHITE BLOOD COUNT 5.9 K/mm3 (4.0-10.0)
[2017-08-08 08:05] LABS: ANION GAP 7 (8-16); CALCIUM 9.1 mg/dL (8.5-10.1); CO2 29 mmol/L (21-32); CREATININE 0.8 mg/dL (0.55-1.02); GLUCOSE,RANDOM 95 mg/dL (74-106)
[2017-08-08] MEDS: PANTOPRAZOLE 40 MG TABLET (FP) PO SCH (10:17)
[2017-08-08] MEDS: LISINOPRIL 5 MG TABLET (FP) PO SCH (10:17)
[2017-08-08] MEDS: ASPIRIN COATED 81 MG TABLET.EC PO SCH (10:17)
[2017-08-08 11:15] VITALS: BP 150/90; PULSE 72; TEMP 98
== END 2017-08-08 11:22 | disposition home or self-care (01) | DRG 392 ==
LOC: JER 15:05 → JERBED 21:21 → J8W 08-06 04:58
PROVIDERS: ADMIT Family Medicine; ATTEND Family Medicine
DX: K52.9 Noninfective gastroenteritis and colitis, unspecified (principal); K56.609 Unspecified intestinal obstruction, unspecified as to partial versus complete obstruction; K40.20 Bilateral inguinal hernia, without obstruction or gangrene, not specified as recurrent; I10 Essential (primary) hypertension; E78.5 Hyperlipidemia, unspecified; K57.30 Diverticulosis of large intestine without perforation or abscess without bleeding; Z96.653 Presence of artificial knee joint, bilateral; F12.10 Cannabis abuse, uncomplicated; F10.10 Alcohol abuse, uncomplicated; K59.00 Constipation, unspecified
CPT/HCPCS: 36415; 71020-TC; 74000-TC; 74177-TC; 80048; 80053; 82150; 83690; 85025; 93005; 93010; 99283-25; Q9967

== ENCOUNTER 2017-12-23 06:47 | Emergency (ER) | payer OTHER, MEDICARE ==
[2017-12-23 07:12] VITALS: BMI 25.8
--- NOTE | 2017-12-23 07:47 | PDOC ---
History of Present Illness - General Chief Complaint: Headache Stated Complaint: PAIN BACK IN HEAD Time Seen by Provider: 12/23/17 07:46 History Source: Patient Exam Limitations: No Limitations - History of Present Illness Initial Comments: 12/23/17 07:46 67yo F wit history of HTN, HLD, b/l TKR, and benign kidney cyst (which has already been worked up) who presents today with a posterior headache. Pt states her headache started Saturday at a 8/10 intensity when she went to her physical therapist. She reports receiving a neck massage therapy and having her symptoms completely eliminated. Pt reports that Saturday night her posterior headache returned with similar quality. At that point she took some Advil PM which did not alleviate her symptoms and proceeded to try heating pads which did not help. Pt reports the headache has waxed and waned since then down to a 2/10 in intensity, however this morning when it returned to a 8/10 she decided to come in. Pt denies any n/v, fever/chills, SOB, CP/discomfort, blurred vision, tingling/ numbness, abdominal pain. Past History - Past Medical History Allergies/Adverse Reactions: Allergies Allergy/AdvReac Type Severity Reaction Status Date / Time No Known Drug Allergies Allergy Verified 12/23/17 07:07 Home Medications: Ambulatory Orders Aspirin [ASA -] 81 mg PO DAILY 08/05/17 Lisinopril [Zestril] 5 mg PO DAILY 08/05/17 Acetaminophen W/ Codeine #3 [Tylenol # 3 -] 1 tab PO TID PRN #15 tablet MDD 3 Calcium Citrate/Vitamin D3 [Calcium Citrate-Vit D3 Caplet] 1 each PO WEEKLY Fenofibrate [Lipofen] 150 mg PO DAILY 12/23/17 Lidocaine 5% Patch [Lidoderm Patch -] 1 patch TP DAILY PRN #30 patch 12/23/17 Methocarbamol [Robaxin -] 500 mg PO TID PRN #30 tablet 12/23/17 Naproxen Sodium 220 mg PO BID PRN #30 tablet 12/23/17 Anemia: No Asthma: No Cancer: No Cardiac Disorders: No CVA: No COPD: No CHF: No DVT: No Dementia: No Diabetes: No GI Disorders: Yes (gastroenteritis) Disorders: Yes (BENIGN CYST ON KIDNEY) HTN: Yes Hypercholesterolemia: Yes Liver Disease: No Seizures: No Thyroid Disease: No - Surgical History Abdominal Surgery: Yes (2 HERNIAS) Appendectomy: No Cardiac Surgery: No Cholecystectomy: No Lung Surgery: No Neurologic Surgery: No Orthopedic Surgery: Yes (SHARLENE KNEE REPLACEMENT) - Immunization History Immunization Up to Date: No - Suicide/Smoking/Psychosocial Hx Smoking History: Never smoked Have you smoked in the past 12 months: No Number of Cigarettes Smoked Daily: 0 Information on smoking cessation initiated: No Hx Alcohol Use: No Drug/Substance Use Hx: No Substance Use Type: None Hx Substance Use Treatment: No Review of Systems - Review of Systems Able to Perform ROS?: Yes Constitutional: No: Chills, Fever, Night Sweats, Weakness HEENTM: No: Eye Pain, Blurred Vision, Ear Pain, Nose Congestion, Throat Pain Respiratory: No: Cough, Shortness of Breath, Wheezing Cardiac (ROS): No: Chest Pain, Lightheadedness, Palpitations, Syncope, Chest Tightness ABD/GI: No: Abdominal Distended, Constipated, Diarrhea, Nausea, Vomiting, Abdominal cramping : No: Dysuria, Frequency Musculoskeletal: Yes: Neck Pain. No: Back Pain, Joint Stiffness Neurological: Yes: Headache. No: Numbness, Tingling, Weakness, Dizziness Psychiatric: Yes: Stressors. No: Anxiety, Depression *Physical Exam - Vital Signs Last Vital Signs Temp Pulse Resp BP Pulse Ox 97.8 F 73 18 150/93 100 12/23/17 07:08 12/23/17 07:08 12/23/17 07:08 12/23/17 07:08 12/23/17 07:08 - Physical Exam Comments: 12/23/17 08:20 GEN: NAD, awake, alert, sitting in bed, at bedside HEENT: EOMI, CHACE, sclera anicteric, no conjunctival injections, moist mucosa NECK: Firm musculature, active ROM limited due to pain and stiffness, passive ROM intact, no lymphadenopathy LUNGS: CTA b/l CARDIAC: RRR no murmurs appreciated ABD: Soft, NT/ND, normoactive BS, no guarding, no rebound Neuro: Facial symmetry at rest, CN II-XII intact, shoulder shrug 5/5, upper extremity strength 5/5 throughout, sensation intact throughout EXT: 2+ distal extremities, no edema noted ED Treatment Course - LABORATORY CBC & Chemistry Diagram: 12/23/17 08:50 12/23/17 08:50 Medical Decision Making - Medical Decision Making 12/23/17 08:04 67yo F with posterior headache High suspicion for neck spasm manifesting as posterior headache. --Doubt vertebral dissection: no history of chiropractic therapy, no neurological deficits on exam, no blurred vision --Compazine 5mg injection --Flexeril 5mg once --IVF --Will reassess with medications on board 12/23/17 08:48 Continued pain despite therapy so far --Imaging ordered C-spine and head CT 12/23/17 09:[address] unremarkable Awaiting C-spine imaging report 12/23/17 10:45 Upon reassessment pt's pain down to 7/10 "from a 12" Still awaiting C-spine report Toradol and Valium *DC/Admit/Observation/Transfer Diagnosis at time of Disposition: Headache Qualifiers: Headache type: unspecified Headache chronicity pattern: acute headache Intractability: intractable Qualified Code(s): R51 - Headache - Discharge Dispostion Disposition: HOME Condition at time of disposition: Stable - Prescriptions Prescriptions: Acetaminophen W/ Codeine #3 [Tylenol # 3 -] 1 tab PO TID PRN #15 tablet MDD 3 PRN Reason: Severe Pain Lidocaine 5% Patch [Lidoderm Patch -] 1 patch TP DAILY PRN #30 patch PRN Reason: Pain Methocarbamol [Robaxin -] 500 mg PO TID PRN #30 tablet PRN Reason: Neck pain Naproxen Sodium 220 mg PO BID PRN #30 tablet PRN Reason: Pain - Referrals Referrals: Gigi Todd MD [Primary Care Provider] - - Patient Instructions Printed Discharge Instructions: Tension Headache, DI for Neck Sprain, DI for Neck Pain Additional Instructions: You were seen in the ED for your headache. This was most likely due to neck spasms. We gave you Flexeril 5mg (which is a muscle relaxant), compazine, toradol and fluids to help stop your headache and spasms Your labs and your head imaging was normal We will initiate medications that you can take at home for pain If you feel nauseous and want to vomit, any tingling or numbness in your extremities, blurred vision for an extended period of time please return to the ER immediately as these can be warning signs for something else other than just headaches It is very important to follow-up with Dr. Todd TOMORROW at NOON - Post Discharge Activity
--- NOTE | 2017-12-23 07:59 | PDOC ---
Attending Attestation - Resident Resident Name: Manuel Martinez - ED Attending Attestation I have performed the following: I have examined & evaluated the patient, The case was reviewed & discussed with the resident, I agree w/resident's findings & plan, Exceptions are as noted - HPI HPI: 12/23/17 09:05 Ms Catherine is a 67 yo F with a history of HTN who presents to the ER wiht a complaint of head and neck pain Pt symptoms began approximately 3 days ago No direct trauma No heavy lifting Pt denies fevers or chills She has been taking NSAIDS with temporary relief but pain returns Two days ago, Physicial therapist gave her a massage and stretching exercises this helped temporarily but her pain returned - Physicial Exam PE: 12/23/17 09:07 On examination: Tenderness to palpation of the base of the skull and upper cervical region pain with movement of neck no erythema no weakness in the extremities - Medical Decision Making 12/23/17 09:08 67 yo F presenting to the ER with neck/headache has been present for several days On exam, pain is localized to the base of the skull, is tender to palpation No traumatic injury she is aware of No peripheral weakness or numbness 12/23/17 12:12 CT head demonstrates No intracranial hemorrhage or mass Pt has a confluent and patchy hypoattenuated area in the deep and subcortical whit ematter which is non specific but presumably due to microvascular ischemia Still awaiting CT c spine 12/23/17 13:02 Pt continues to have pain but it is now bear[place] Pt is non toxic appearing Pt seen in her room eating lunch We have reviewed her CT findings Will discharge to home Case reviewed with Dr. Todd He will see this patient tomorrow at noon Clinical impression: neck pain, initial presentation Discharge Disposition - Diagnosis Headache Qualifiers: Headache type: unspecified Headache chronicity pattern: acute headache Intractability: intractable Qualified Code(s): R51 - Headache - Discharge Dispostion Disposition: HOME Condition at time of disposition: Stable Last Admission D/C Date: 08/08/17 Admit: No - Referrals Referrals: Gigi Todd MD [Primary Care Provider] - - Patient Instructions Printed Discharge Instructions: Tension Headache, DI for Neck Sprain, DI for Neck Pain Additional Instructions: You were seen in the ED for your headache. This was most likely due to neck spasms. We gave you Flexeril 5mg (which is a muscle relaxant), compazine, toradol and fluids to help stop your headache and spasms Your labs and your head imaging was normal We will initiate medications that you can take at home for pain If you feel nauseous and want to vomit, any tingling or numbness in your extremities, blurred vision for an extended period of time please return to the ER immediately as these can be warning signs for something else other than just headaches It is very important to follow-up with Dr. Todd TOMORROW at NOON - Post Discharge Activity
[2017-12-23] MEDS ORDERED: PROCHLORPERAZINE MALEATE 5 MG TABLET PO ONE (08:02)
[2017-12-23] MEDS ORDERED: CYCLOBENZAPRINE HCL 5 MG TABLET PO ONE (08:03)
[2017-12-23] MEDS ORDERED: PROCHLORPERAZINE INJECTION 10 MG/2 ML VIAL IVPB ONE (08:06)
[2017-12-23] MEDS ORDERED: SODIUM CHLORIDE 1,000 ML IV STA (08:11)
[2017-12-23] MEDS ORDERED: ACETAMINOPHEN 1000 MG/100 ML VIAL (NON FORMULARY) IVPB ONE (08:13)
[2017-12-23] MEDS ORDERED: CYCLOBENZAPRINE HCL 10 MG TABLET (FP) ONE (08:21)
[2017-12-23] MEDS ORDERED: PROCHLORPERAZINE INJECTION 10 MG/2 ML VIAL ONE (08:21)
[2017-12-23] MEDS ORDERED: ACETAMINOPHEN INJECTION 100 ML IVPB ONE (08:22)
[2017-12-23 08:58] LABS: BASO % 0.5 % (0-2.0); EOS % 1.2 % (0-4.5); HEMATOCRIT 43.2 % (32.4-45.2); HEMOGLOBIN 14.3 GM/dL (10.7-15.3); LYMPH % 14.5 % (8-40); MCH 31.3 pg (25.7-33.7); MCHC 33.1 g/dl (32.0-36.0); MEAN CELL VOLUME 94.5 fl (80-96); MEAN PLT VOLUME 7.5 fl (7.5-11.1); MONO % 7.6 % (3.8-10.2); NEUT % 76.2 % (42.8-82.8); PLATELET COUNT 342 K/MM3 (134-434); RBC 4.57 M/mm3 (3.60-5.2); RDW 13.4 % (11.6-15.6)
[2017-12-23 09:12] LABS: ANION GAP 5 (8-16); BLOOD UREA NITROGEN 14 mg/dL (7-18); CALCIUM 8.8 mg/dL (8.5-10.1); CHLORIDE 106 mmol/L (98-107); CO2 27 mmol/L (21-32); CREATININE 0.9 mg/dL (0.55-1.02); GLUCOSE,RANDOM 115 mg/dL (74-106); SODIUM 138 mmol/L (136-145)
[2017-12-23 09:13] LABS: POTASSIUM 4.4 mmol/L (3.5-5.1)
[2017-12-23] MEDS ORDERED: KETOROLAC TROMETHAMINE 30 MG/1 ML VIAL IVPUSH ONE (11:15)
[2017-12-23] MEDS ORDERED: diazePAM 2 MG TABLET PO ONE (11:15)
[2017-12-23] MEDS ORDERED: KETOROLAC TROMETHAMINE 30 MG/1 ML VIAL ONE (11:36)
[2017-12-23] MEDS ORDERED: diazePAM 2 MG TABLET ONE (11:36)
[2017-12-23 12:07] VITALS: BP 161/97; PULSE 68; TEMP 97.6
== END 2017-12-23 14:06 | disposition home or self-care (01) ==
LOC: JER 06:47
PROC: 3E0337Z Introduction of Electrolytic and Water Balance Substance into Peripheral Vein, Percutaneous Approach (ICD-10-PCS; principal; 2017-12-23)
PROC: 3E033GC Introduction of Other Therapeutic Substance into Peripheral Vein, Percutaneous Approach (ICD-10-PCS; 2017-12-23)
PROC: 3E033NZ Introduction of Analgesics, Hypnotics, Sedatives into Peripheral Vein, Percutaneous Approach (ICD-10-PCS; 2017-12-23)
PROC: 3E0333Z Introduction of Anti-inflammatory into Peripheral Vein, Percutaneous Approach (ICD-10-PCS; 2017-12-23)
DX: R51 Headache (principal); M62.838 Other muscle spasm; I10 Essential (primary) hypertension; E78.5 Hyperlipidemia, unspecified; E78.00 Pure hypercholesterolemia, unspecified; N28.1 Cyst of kidney, acquired; Z96.653 Presence of artificial knee joint, bilateral
CPT/HCPCS: 36415; 70450-TC; 72125-TC; 80048; 85025; 96361; 96374; 96375; 99282-25; J0131; J7030

== ENCOUNTER 2019-08-12 10:26 | Day surgery (SDC) | payer OTHER, MEDICARE ==
--- NOTE | 2019-07-08 10:51 | HP ---
DATE OF ADMISSION: 08/12/2019 DATE OF DICTATION: 06/04/2019 BRIEF HISTORY: This is a 68-year-old female who has had some nonspecific complaints of abdominal discomfort associated with a very sour taste in her abdomen. She underwent evaluation with an ultrasound that demonstrated sludge and possibly a polyp. No other significant findings were noted. She was managed by GI and now is here today for a laparoscopic cholecystectomy. Patient denies a change in stool color, urine color. No fever, chills, or sweats. PAST MEDICAL HISTORY: Significant for peptic ulcer disease, hypertension, hypercholesterolemia, arthritic changes. PAST SURGICAL HISTORY: Knee replacement and bilateral hernia repaired laparoscopically (Paras 2016). ALLERGIES: None. MEDICATIONS: Lisinopril 5mg, omeprazole 20mg, fenofibrate 160mg, alendronate 70mg. SOCIAL HISTORY: Patient does not smoke or drink. No history of drug use. PHYSICAL EXAMINATION: HEENT: There is no icterus. Abdomen: Soft, nontender, nondistended. She has very well-healed laparoscopic inguinal hernia scars. She has no evidence of recurrence. The remainder of the abdominal examination is unremarkable. IMPRESSION/PLAN: Gallbladder sludge, possible polyp. This is a 68-year-old female with nonspecific abdominal discomfort, fatty food intolerance, and intolerance to milk. Ultrasound workup with the gallbladder is not entirely normal. We have discussed the pros and cons of removal of the gallbladder for a possible 5-mm polyp versus following this, as well as removal of the gallbladder for sludge versus following, and ultimately, the patient has opted to proceed with a gallbladder removal. She understands very clearly that removing her gallbladder may not completely resolve her of her symptoms. She still wants her abnormal gallbladder removed. The indications, alternatives, and complications of a laparoscopic cholecystectomy, possible open, have been discussed. Questions answered. We will plan to obtain written consent the day of surgery. Anderson GILLESPIE [id number] cc: Gigi Todd MD MTDD
[2019-08-04 13:13] VITALS: BMI 25.0
[~2019-08-12 10:26] MED LIST: ACETAMINOPHEN 325 MG TABLET (FP) PO PRN; DESFLURANE GAS 240 ML BOTTLE IH ONE; DEXAMETHASONE SOD PHOSPHATE 4 MG/1 ML VIAL ONE; GLYCOPYRROLATE 0.2 MG/1 ML VIAL ONE; HYDROmorphone HCL/PF 1 MG/ML AMP ONE; MIDAZOLAM HCL 2 MG/2 ML SINGLE DOSE VIAL ONE; NEOSTIGMINE METHYLSULFATE 0.5 MG/ML - 10 ML MDV ONE; ONDANSETRON 4 MG/2 ML VIAL ONE; PROPOFOL 20 ML ONE; ROCURONIUM BROMIDE 50 MG/5 ML SYRINGE ONE; SUCCINYLCHOLINE CHLORIDE 200 MG/10 ML SYRINGE ONE; morphine SULFATE 4 MG/ML VIAL IVPB PRN; oxyCODONE HCL 5 MG TABLET PO PRN
[2019-08-12] MEDS ORDERED: D5-1/2NS+20 MEQ KCL - 20 MEQ/1,000 ML INFUS.BAG IV SCH (10:30)
[2019-08-12] MEDS ORDERED: LACTATED RINGERS SOLUTION 1,000 ML IV SCH (11:00)
[2019-08-12] MEDS ORDERED: ONDANSETRON 4 MG/2 ML VIAL ONE (11:06)
[2019-08-12] MEDS: ONDANSETRON 4 MG/2 ML VIAL IVPUSH PRN ×2 (11:09→19:51)
--- NOTE | 2019-08-12 20:33 | OP ---
DATE OF OPERATION: 08/12/2019 PREOPERATIVE DIAGNOSIS: Gallbladder sludge, possible polyp, abdominal pain, biliary colic colon. POSTOPERATIVE DIAGNOSIS: Gallbladder sludge, possible polyp, abdominal pain, biliary colic colon. PROCEDURE: Laparoscopic cholecystectomy, peritoneal lavage. SURGEON: Soren Crain MD HEAD BUCKER: Manuel Munoz DO ANESTHESIOLOGIST: Evelin Esposito M.D. ANESTHESIA: General anesthesia. ESTIMATED BLOOD LOSS: Minimal. SPECIMEN: Gallbladder. INDICATION: This is a 68-year-old female with nonspecific abdominal discomfort. She was worked up and diagnosed as having sludge as well as possible gallbladder polyp. She is here today for laparoscopic cholecystectomy. DESCRIPTION OF PROCEDURE: Patient identified and appropriately positioned on operating room table, placed under general anesthesia, the abdomen prepped and draped in the usual sterile fashion with ChloraPrep. An infraumbilical incision was made deep in the subcutaneous tissue. The fascia of the rectus muscle identified and divided sharply. The peritoneum incised under direct vision. A Veress needle followed by a structural needle placed. Also under direct vision, the remaining ports were placed. The gallbladder identified in the right upper quadrant. There is omentum plastered to the body and dome of the gallbladder. These adhesions were taken down sharply, the gallbladder reflected over the dome of the liver in standard fashion going from lateral medial to neck and infundibulum of the gallbladder identified followed by the cystic duct. Cystic duct circumferentially isolated, clipped, and then divided. Cystic artery identified and it is more medially and posteriorly, subsequently isolated, clipped, and divided as well. The gallbladder itself was removed from the liver bed with electrocautery. Prior to complete liver removal, liver bed was irrigated. The operative field noted to be hemostatic. The specimen was brought through the umbilical port site. Ports were removed. Ports site noted to be hemostatic. The fascia at the umbilical port site was reapproximated with 0 Vicryl suture. All skin closed with 4-0 subcuticular Biosyn followed by Dermabond. At the conclusion of the case, sponge and needle counts were correct. ATTESTATION: Brief operative note handwritten on the preprinted form. [facility] queried prior to giving narcotics. Anderson GILLESPIE [id number] cc: Gigi Todd M.D.
[2019-08-13] MEDS ORDERED: LISINOPRIL 5 MG TABLET (FP) PO SCH (10:00)
[2019-08-13] MEDS ORDERED: ENOXAPARIN NA (PORCINE) 40 MG/0.4 ML DISP.SYRIN SQ SCH (10:00)
[2019-08-13] MEDS ORDERED: PANTOPRAZOLE SODIUM 40 MG VIAL IVPUSH SCH (10:00)
[2019-08-13 10:27] VITALS: BP 152/85; PULSE 70; TEMP 98.2
--- NOTE | 2019-08-13 10:41 | PN ---
Progress Note (short form) - Note Progress Note: Pt is POD1 s/p lap valarie. She is doing well, has no c/o pain, VSS, no anesthetic issues/complications noted.
--- NOTE | 2019-08-17 16:00 | PATH ---
Surgical Pathology Report Patient Name: MAUREEN BERGMAN Med. Rec. #: [id number] /Age/Gender: 1950 (Age: 68) / F Account: [id number] Location: [facility] Taken: 08/12/2019 Received: 08/12/2019 Reported: 08/17/2019 Physicians: Soren Crain Specimen(s) Received GALLBLADDER Clinical History Cholecystitis Final Diagnosis GALLBLADDER, CHOLECYSTECTOMY: CHRONIC CHOLECYSTITIS. Electronically Signed Eleanor Dowell M.D. Gross Description Received in formalin, labeled "gallbladder," is an 8.5 x 3.0 x 3.0 cm. gallbladder with a 0.2 cm. in length portion of cystic duct attached. The outer surface is granados green and varies from smooth to shaggy. The lumen contains green, tenacious bile. No choleliths are identified within the lumen or within the container. The mucosa is dark green and velvety. The wall of the gallbladder measures 0.1 cm. in thickness. Shoe Caser sections are submitted in one cassette. 08/13/2019 [facility]08/13/2019
== END 2019-08-13 10:55 | disposition home or self-care (01) ==
LOC: SUATTDRO 10:26 → FASUSAT 10:26 → FM/S 13:14 → FASUSAT 08-13 10:55
PROVIDERS: ATTEND Nurse Practitioner Acute Care
PROC: 0FT44ZZ Resection of Gallbladder, Percutaneous Endoscopic Approach (ICD-10-PCS; principal; 2019-08-12 09:56)
DX: K80.50 Calculus of bile duct without cholangitis or cholecystitis without obstruction (principal)
CPT/HCPCS: 88304-TC; 94760

== ENCOUNTER 2021-02-14 20:58 | Emergency (ER) | payer OTHER, MEDICARE ==
[2021-02-14 21:05] VITALS: BP 159/98; PULSE 78; TEMP 98.7; BMI 26.3
[2021-02-14] MEDS ORDERED: ACETAMINOPHEN 500 MG TABLET (FP) ONE (22:37)
== END 2021-02-14 22:55 | disposition home or self-care (01) ==
LOC: JERFT 20:58
DX: M25.561 Pain in right knee (principal)
CPT/HCPCS: 73562-TC-RT-FY; 99283-25